=== PATIENT | female | born 1985 | race Caucasian/White ===

== ENCOUNTER 2024-07-13 23:02 | Emergency (ER) | payer MEDICAID, SELFPAY ==
[2024-07-13 23:04] VITALS: BP 168/104; PULSE 97; RESP 18; TEMP 36; O2SAT 91; BMI 53.2
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
[2024-07-13] MEDS: cephALEXin 500 mg Capsule PO (23:37)
[2024-07-13] MEDS: tetanus-dipt-pertussis 0.5 mL SDV IM (23:38)
[2024-07-13] MEDS: lidocaine-epi 1% 20 mL INJ INJECTION (23:51)
[2024-07-13 23:55] VITALS: BP 151/99; PULSE 94; O2SAT 97
[2024-07-14] MEDS: HYDROcodone-acetaminophen 5-325 mg Tablet 2 TAB PO (00:38)
[2024-07-14 00:39] VITALS: BP 182/92; PULSE 93; O2SAT 96
--- NOTE | 2024-07-14 00:40 | PC.NURSE ---
Patient was given 1 norco here and sent home with 1 norco, signed off by Uzma VALENTIN.
[2024-07-14 00:41] VITALS: BP 182/92; PULSE 93; O2SAT 96
== END 2024-07-14 00:44 | disposition home or self-care (01) ==
PROVIDERS: Emergency Provider Nurse Practitioner Family
DX: S61.412A Laceration without foreign body of left hand, initial encounter (principal); S43.401A Unspecified sprain of right shoulder joint, initial encounter; V86.99XA Unspecified occupant of other special all-terrain or other off-road motor vehicle injured in nontraffic accident, initial encounter
CPT/HCPCS: 12002; 73030; 73130; 90715; 99284; J9999